=== PATIENT | male | born 1960 | race Caucasian/White ===

== ENCOUNTER 2017-08-24 15:30 | Inpatient (IN) ==
[2017-08-24 17:29] LABS: Basophils # 0.1 10*3/uL (0.0-0.2); Basophils % 0.5 % (0.0-0.8); Eosinophils # 0.2 10*3/uL (0.0-0.87); Eosinophils % 1.2 % (0.00-10.9); Hematocrit 42.1 VOL% (42.0-52.0); Hemoglobin 14.5 GM/DL (14.0-18.0); Immature Granulocytes % 0.3 %; Immature Granulocytes Absolute 0.04 #; Lymphocytes % 23.4 % (21.2-54.2); Mean Corpuscular HGB Conc 34.4 GM/DL (32-36); Mean Corpuscular Hemoglobin 32 PG (27-34); Mean Corpuscular Volume 91.5 FL (87-102); Mean Platelet Volume 9.1 FL (9.6-12.0); Monocytes % 7.4 % (1.7-12.7); Neutrophils # 8.7 10*3/uL (1.4-7.4); Neutrophils % 67.2 % (38.7-73.9); Platelet Count 444 T/CUMM (130-400); Red Cell Distribution Width 12.8 % (9.3-17.3); White Blood Count 12.9 T/CUMM (4-12)
[2017-08-24 17:35] LABS: Apearance,Urine CLEAR (Clear); Bilirubin,Urine Negative (Negative); Blood, Urine Small mg/dL (Negative); Glucose,Urine (UA) Negative (Negative); Ketones,Urine Negative (Negative); Nitrite,Urine Negative (Negative); Protein,Urine Negative; RBC,Urine 7 /HPF (0-4); Urine Color Yellow (Yellow); Urine Specific Gravity 1.012 (1.001-1.035); Urine Urobilinogen < 2.0 EU/DL (0.2-1.0); WBC,Urine <1 /HPF (0-6)
[2017-08-24 17:41] LABS: Barbiturates Screen,Urine Negative (Negative); Benzodiazepines Screen,Urine Negative (Negative); Cannabinoid Screen,Urine Negative (Negative); Opiate Screen,Urine Positive (Negative); Phencyclidine Screen,Urine Negative (Negative)
[2017-08-24 17:46] LABS: INR 0.9; PT Patient Result 9.8 SECS; Partial Thromboplastin Time 25.7 SECS (0-40)
[2017-08-24 17:48] LABS: Alanine Aminotransferase 30 U/L (16-61); Albumin 3.9 G/DL (3.4-5.0); Alkaline Phosphatase 86 U/L (45-117); Aspartate Amino Transferase 17 U/L (0-37); Bilirubin,Total < 0.39 MG/DL (0.2-1.0); Blood Urea Nitrogen 12 MG/DL (7-18); Calcium 8.5 MG/DL (8.5-10.1); Glucose 99 MG/DL (74-106); Osmolality,Calculated 274.7 MOS/KG (273-304); Potassium 3.9 MMOL/L (3.5-5.1); Sodium 138 MMOL/L (136-145); Total Protein 7.5 G/DL (6.4-8.3)
[2017-08-24 17:49] LABS: Troponin I Only < 0.015 NG/ML (0.00-0.045)
[2017-08-24 18:41] LABS: Sedimentation Rate-Westergren 19 MM/HR (0-20)
[2017-08-24 20:20] LABS: Risk Ratio 2.64; VLDL CHOLESTEROL 28.8 MG/DL
[2017-08-25 06:59] LABS: Basophils # 0.1 10*3/uL (0.0-0.2); Basophils % 0.5 % (0.0-0.8); Eosinophils # 0.3 10*3/uL (0.0-0.87); Eosinophils % 2.5 % (0.00-10.9); Hematocrit 38.9 VOL% (42.0-52.0); Immature Granulocytes % 0.4 %; Immature Granulocytes Absolute 0.05 #; Lymphocytes # 4.2 10*3/uL (1.4-4.0); Lymphocytes % 33.4 % (21.2-54.2); Mean Corpuscular HGB Conc 33.4 GM/DL (32-36); Mean Corpuscular Hemoglobin 31 PG (27-34); Mean Corpuscular Volume 93.1 FL (87-102); Mean Platelet Volume 9.3 FL (9.6-12.0); Monocytes # 1.2 10*3/uL (0.11-0.8); Monocytes % 9.7 % (1.7-12.7); Neutrophils # 6.7 10*3/uL (1.4-7.4); Neutrophils % 53.5 % (38.7-73.9); Platelet Count 404 T/CUMM (130-400); Red Blood Count 4.18 MC/CUMM (3.8-5.5); Red Cell Distribution Width 12.6 % (9.3-17.3); White Blood Count 12.5 T/CUMM (4-12)
[2017-08-25 07:24] LABS: Calcium 8.8 MG/DL (8.5-10.1); Osmolality,Calculated 282.3 MOS/KG (273-304); Potassium 3.8 MMOL/L (3.5-5.1)
[2017-08-26 11:41] VITALS: BP 138/79
== END 2017-08-26 15:34 | disposition home or self-care (01) | DRG 103 ==
LOC: N.ED 15:30 → N.EDINP 19:57 → N.5E 21:39
PROVIDERS: ADMIT Internal Medicine; ATTEND Internal Medicine

== ENCOUNTER 2017-11-16 09:28 | Inpatient (IN) ==
[2017-11-16] MEDS ORDERED: POLYVINYL ALCOHOL 1.4% OPH SOLN 15 ML BOTTLE BOTH EYES PRN (14:40)
[2017-11-16] MEDS ORDERED: POLYETHYLENE GLYCOL POWDER 17 GM PACK PO SCH (15:00)
[2017-11-16] MEDS ORDERED: TUBERCULIN SKIN TEST 0.1 ML SYRINGE INTRADERM ONE (15:30)
[2017-11-16] MEDS: POLYETHYLENE GLYCOL POWDER 17 GM PACK PEG SCH (17:02)
[2017-11-16] MEDS: ALBUTEROL/IPRATROPIUM 3 ML NEB RESP TX SCH (19:21)
[2017-11-16] MEDS: ENOXAPARIN 40 MG/0.4 ML SYRINGE SUBCUT SCH (21:40)
[2017-11-16] MEDS: PROPRANOLOL 10 MG TABLET PO SCH (21:50)
[2017-11-17] MEDS: ALBUTEROL/IPRATROPIUM 3 ML NEB RESP TX SCH ×4 (01:08→19:50)
[2017-11-17] MEDS: PROPRANOLOL 10 MG TABLET PO SCH ×3 (06:42→21:59)
[2017-11-17 06:53] LABS: Basophils # 0.1 10*3/uL (0.0-0.2); Basophils % 0.5 % (0.0-0.8); Eosinophils # 0.2 10*3/uL (0.0-0.87); Eosinophils % 1.2 % (0.00-10.9); Hematocrit 31.6 VOL% (42.0-52.0); Hemoglobin 10.5 GM/DL (14.0-18.0); Immature Granulocytes % 0.6 %; Immature Granulocytes Absolute 0.09 #; Lymphocytes # 1.9 10*3/uL (1.4-4.0); Lymphocytes % 13.1 % (21.2-54.2); Mean Corpuscular HGB Conc 33.2 GM/DL (32-36); Mean Corpuscular Hemoglobin 27 PG (27-34); Mean Corpuscular Volume 81.7 FL (87-102); Mean Platelet Volume 9.8 FL (9.6-12.0); Monocytes # 2.1 10*3/uL (0.11-0.8); Monocytes % 14.5 % (1.7-12.7); Neutrophils # 10.3 10*3/uL (1.4-7.4); Neutrophils % 70.1 % (38.7-73.9); Platelet Count 572 T/CUMM (130-400); Red Blood Count 3.87 MC/CUMM (3.8-5.5); Red Cell Distribution Width 14.3 % (9.3-17.3); White Blood Count 14.7 T/CUMM (4-12)
[2017-11-17 07:12] LABS: Alanine Aminotransferase 97 U/L (16-61); Albumin 2.2 G/DL (3.4-5.0); Alkaline Phosphatase 147 U/L (45-117); Aspartate Amino Transferase 48 U/L (0-37); Bilirubin,Total < 0.39 MG/DL (0.2-1.0); Blood Urea Nitrogen 19 MG/DL (7-18); Glucose 119 MG/DL (74-106); Osmolality,Calculated 262.8 MOS/KG (273-304); Potassium 3.9 MMOL/L (3.5-5.1); Sodium 130 MMOL/L (136-145); Total Protein 7.1 G/DL (6.4-8.3)
[2017-11-17] MEDS: ZINC OXIDE PASTE 113 GM TUBE TOP SCH ×2 (13:23→22:00)
[2017-11-17] MEDS: SODIUM CHLORIDE 1 GM TABLET PO SCH ×2 (13:23→21:59)
[2017-11-17] MEDS: POLYETHYLENE GLYCOL POWDER 17 GM PACK PEG SCH (13:23)
[2017-11-17] MEDS: DOCUSATE SODIUM 100 MG/10 ML UDCUP PEG SCH (13:23)
[2017-11-17] MEDS: ENOXAPARIN 40 MG/0.4 ML SYRINGE SUBCUT SCH (22:00)
[2017-11-18] MEDS: ALBUTEROL/IPRATROPIUM 3 ML NEB RESP TX SCH ×4 (00:26→20:15)
[2017-11-18] MEDS: PROPRANOLOL 10 MG TABLET PO SCH ×3 (05:21→21:37)
[2017-11-18 06:09] LABS: Calcium 8.7 MG/DL (8.5-10.1); Osmolality,Calculated 266.7 MOS/KG (273-304); Potassium 3.8 MMOL/L (3.5-5.1); Prealbumin 15.7 MG/DL (20-40)
[2017-11-18] MEDS: DOCUSATE SODIUM 100 MG/10 ML UDCUP PEG SCH (09:15)
[2017-11-18] MEDS: SODIUM CHLORIDE 1 GM TABLET PO SCH ×3 (09:15→21:37)
[2017-11-18] MEDS: FAMOTIDINE 20 MG TABLET PEG SCH ×2 (09:15→21:37)
[2017-11-18] MEDS: POLYETHYLENE GLYCOL POWDER 17 GM PACK PEG SCH (09:15)
[2017-11-18] MEDS: ZINC OXIDE PASTE 113 GM TUBE TOP SCH ×2 (09:15→21:38)
[2017-11-18 13:15] LABS: Basophils # 0.1 10*3/uL (0.0-0.2); Basophils % 0.3 % (0.0-0.8); Eosinophils % 0.2 % (0.00-10.9); Hematocrit 31.4 VOL% (42.0-52.0); Hemoglobin 10.3 GM/DL (14.0-18.0); Immature Granulocytes % 0.5 %; Immature Granulocytes Absolute 0.09 #; Lymphocytes # 1.2 10*3/uL (1.4-4.0); Lymphocytes % 7.1 % (21.2-54.2); Mean Corpuscular HGB Conc 32.8 GM/DL (32-36); Mean Corpuscular Hemoglobin 27 PG (27-34); Mean Corpuscular Volume 83.3 FL (87-102); Mean Platelet Volume 9.8 FL (9.6-12.0); Monocytes # 1.8 10*3/uL (0.11-0.8); Monocytes % 10.9 % (1.7-12.7); Neutrophils # 13.7 10*3/uL (1.4-7.4); Platelet Count 526 T/CUMM (130-400); Red Blood Count 3.77 MC/CUMM (3.8-5.5); Red Cell Distribution Width 14.3 % (9.3-17.3); White Blood Count 16.9 T/CUMM (4-12)
[2017-11-18 15:18] LABS: Apearance,Urine Slightly Hazy (Clear); Bilirubin,Urine Negative (Negative); Blood, Urine Negative (Negative); Glucose,Urine (UA) Negative (Negative); Ketones,Urine Negative (Negative); Mucus,Urine Occasional /LPF (Occasional); Nitrite,Urine Negative (Negative); Protein,Urine 30 MG/DL; RBC,Urine 25 /HPF (0-4); Squamous Epithelial Cell,Urine Occasional /HPF (0-10); Urine Color Yellow (Yellow); Urine Specific Gravity 1.024 (1.001-1.035); WBC,Urine 1 /HPF (0-6)
[2017-11-18] MEDS: ACETAMINOPHEN 325 MG/10.15 ML UDCUP PER TUBE PRN (16:12)
[2017-11-18] MEDS: ENOXAPARIN 40 MG/0.4 ML SYRINGE SUBCUT SCH (21:37)
[2017-11-19] MEDS: ALBUTEROL/IPRATROPIUM 3 ML NEB RESP TX SCH ×4 (02:17→19:18)
[2017-11-19] MEDS: PROPRANOLOL 10 MG TABLET PO SCH ×3 (05:27→23:35)
[2017-11-19] MEDS: POLYETHYLENE GLYCOL POWDER 17 GM PACK PEG SCH (09:15)
[2017-11-19] MEDS: DOCUSATE SODIUM 100 MG/10 ML UDCUP PEG SCH (09:15)
[2017-11-19] MEDS: ZINC OXIDE PASTE 113 GM TUBE TOP SCH ×2 (09:15→21:37)
[2017-11-19] MEDS: FAMOTIDINE 20 MG TABLET PEG SCH ×2 (09:16→21:37)
[2017-11-19] MEDS: ACETAMINOPHEN 325 MG/10.15 ML UDCUP PER TUBE PRN (09:16)
[2017-11-19] MEDS: SODIUM CHLORIDE 1 GM TABLET PO SCH ×3 (09:16→21:37)
[2017-11-19] MEDS: LEVOFLOXACIN INJ 500 MG in PREMIX 1 EACH IV SCH (09:25)
[2017-11-19] MEDS: ENOXAPARIN 40 MG/0.4 ML SYRINGE SUBCUT SCH (21:37)
[2017-11-20] MEDS: ALBUTEROL/IPRATROPIUM 3 ML NEB RESP TX SCH ×4 (00:26→19:28)
[2017-11-20 05:26] LABS: Basophils % 0.3 % (0.0-0.8); Eosinophils # 0.2 10*3/uL (0.0-0.87); Eosinophils % 1.1 % (0.00-10.9); Hematocrit 27.8 VOL% (42.0-52.0); Hemoglobin 9.2 GM/DL (14.0-18.0); Immature Granulocytes % 0.4 %; Immature Granulocytes Absolute 0.06 #; Lymphocytes # 1.6 10*3/uL (1.4-4.0); Lymphocytes % 11.5 % (21.2-54.2); Mean Corpuscular HGB Conc 33.1 GM/DL (32-36); Mean Corpuscular Hemoglobin 27 PG (27-34); Mean Corpuscular Volume 81.5 FL (87-102); Mean Platelet Volume 9.6 FL (9.6-12.0); Monocytes # 1.9 10*3/uL (0.11-0.8); Monocytes % 13.7 % (1.7-12.7); Neutrophils # 9.9 10*3/uL (1.4-7.4); Platelet Count 489 T/CUMM (130-400); Red Blood Count 3.41 MC/CUMM (3.8-5.5); Red Cell Distribution Width 14.5 % (9.3-17.3); White Blood Count 13.6 T/CUMM (4-12)
[2017-11-20 05:56] LABS: Albumin 2.1 G/DL (3.4-5.0); Bilirubin,Total 0.5 MG/DL (0.2-1.0); Calcium 8.6 MG/DL (8.5-10.1); Osmolality,Calculated 268.4 MOS/KG (273-304); Potassium 3.3 MMOL/L (3.5-5.1); Total Protein 6.3 G/DL (6.4-8.3)
[2017-11-20] MEDS: PROPRANOLOL 10 MG TABLET PO SCH ×3 (06:35→21:38)
[2017-11-20] MEDS: LEVOFLOXACIN INJ 500 MG in PREMIX 1 EACH IV SCH (07:07)
[2017-11-20] MEDS: FAMOTIDINE 20 MG TABLET PEG SCH ×2 (08:43→21:37)
[2017-11-20] MEDS: DOCUSATE SODIUM 100 MG/10 ML UDCUP PEG SCH (08:43)
[2017-11-20] MEDS: ZINC OXIDE PASTE 113 GM TUBE TOP SCH ×2 (08:43→21:37)
[2017-11-20] MEDS: POLYETHYLENE GLYCOL POWDER 17 GM PACK PEG SCH (08:43)
[2017-11-20] MEDS: SODIUM CHLORIDE 1 GM TABLET PO SCH ×3 (08:43→21:38)
[2017-11-20] MEDS: ENOXAPARIN 40 MG/0.4 ML SYRINGE SUBCUT SCH (21:37)
[2017-11-21] MEDS: ALBUTEROL/IPRATROPIUM 3 ML NEB RESP TX SCH ×4 (01:44→19:44)
[2017-11-21 05:13] LABS: Basophils # 0.1 10*3/uL (0.0-0.2); Basophils % 0.5 % (0.0-0.8); Eosinophils # 0.2 10*3/uL (0.0-0.87); Eosinophils % 1.3 % (0.00-10.9); Hematocrit 27.1 VOL% (42.0-52.0); Hemoglobin 8.9 GM/DL (14.0-18.0); Immature Granulocytes % 0.4 %; Immature Granulocytes Absolute 0.04 #; Lymphocytes # 1.7 10*3/uL (1.4-4.0); Lymphocytes % 15.1 % (21.2-54.2); Mean Corpuscular HGB Conc 32.8 GM/DL (32-36); Mean Corpuscular Hemoglobin 27 PG (27-34); Mean Corpuscular Volume 81.6 FL (87-102); Mean Platelet Volume 9.8 FL (9.6-12.0); Monocytes # 1.5 10*3/uL (0.11-0.8); Monocytes % 13.7 % (1.7-12.7); NRBC # 0.02 10*3/uL; Neutrophils # 7.7 10*3/uL (1.4-7.4); Platelet Count 500 T/CUMM (130-400); Red Blood Count 3.32 MC/CUMM (3.8-5.5); Red Cell Distribution Width 14.6 % (9.3-17.3); White Blood Count 11.2 T/CUMM (4-12)
[2017-11-21] MEDS: PROPRANOLOL 10 MG TABLET PO SCH ×3 (08:30→21:54)
[2017-11-21] MEDS: LEVOFLOXACIN INJ 500 MG in PREMIX 1 EACH IV SCH (08:38)
[2017-11-21] MEDS: ZINC OXIDE PASTE 113 GM TUBE TOP SCH ×2 (09:30→21:54)
[2017-11-21] MEDS: POLYETHYLENE GLYCOL POWDER 17 GM PACK PEG SCH (10:22)
[2017-11-21] MEDS: DOCUSATE SODIUM 100 MG/10 ML UDCUP PEG SCH (10:22)
[2017-11-21] MEDS: SODIUM CHLORIDE 1 GM TABLET PO SCH ×3 (10:22→21:54)
[2017-11-21] MEDS: FAMOTIDINE 20 MG TABLET PEG SCH ×2 (10:22→21:54)
[2017-11-21] MEDS: ENOXAPARIN 40 MG/0.4 ML SYRINGE SUBCUT SCH (21:54)
[2017-11-22] MEDS: ALBUTEROL/IPRATROPIUM 3 ML NEB RESP TX SCH ×4 (00:25→19:28)
[2017-11-22 05:10] LABS: Basophils # 0.1 10*3/uL (0.0-0.2); Basophils % 0.6 % (0.0-0.8); Eosinophils # 0.2 10*3/uL (0.0-0.87); Eosinophils % 1.4 % (0.00-10.9); Hematocrit 28.4 VOL% (42.0-52.0); Hemoglobin 9.1 GM/DL (14.0-18.0); Immature Granulocytes % 0.4 %; Immature Granulocytes Absolute 0.05 #; Lymphocytes # 2.4 10*3/uL (1.4-4.0); Lymphocytes % 19.2 % (21.2-54.2); Mean Corpuscular Hemoglobin 27 PG (27-34); Mean Corpuscular Volume 83.5 FL (87-102); Mean Platelet Volume 9.2 FL (9.6-12.0); Monocytes # 1.7 10*3/uL (0.11-0.8); Monocytes % 13.5 % (1.7-12.7); Neutrophils # 8.2 10*3/uL (1.4-7.4); Neutrophils % 64.9 % (38.7-73.9); Platelet Count 537 T/CUMM (130-400); Red Cell Distribution Width 14.5 % (9.3-17.3); White Blood Count 12.6 T/CUMM (4-12)
[2017-11-22 05:38] LABS: Calcium 8.6 MG/DL (8.5-10.1); Osmolality,Calculated 268.2 MOS/KG (273-304); Potassium 3.3 MMOL/L (3.5-5.1); Prealbumin 13.2 MG/DL (20-40)
[2017-11-22] MEDS: PROPRANOLOL 10 MG TABLET PO SCH ×3 (07:20→21:52)
[2017-11-22] MEDS: LEVOFLOXACIN INJ 500 MG in PREMIX 1 EACH IV SCH (07:39)
[2017-11-22] MEDS: SODIUM CHLORIDE 1 GM TABLET PO SCH ×3 (09:28→21:52)
[2017-11-22] MEDS: ZINC OXIDE PASTE 113 GM TUBE TOP SCH ×2 (09:28→21:52)
[2017-11-22] MEDS: FAMOTIDINE 20 MG TABLET PEG SCH ×2 (09:28→21:52)
[2017-11-22] MEDS: POLYETHYLENE GLYCOL POWDER 17 GM PACK PEG SCH (09:28)
[2017-11-22] MEDS: DOCUSATE SODIUM 100 MG/10 ML UDCUP PEG SCH (09:28)
[2017-11-22] MEDS: ENOXAPARIN 40 MG/0.4 ML SYRINGE SUBCUT SCH (21:52)
[2017-11-23] MEDS: ALBUTEROL/IPRATROPIUM 3 ML NEB RESP TX SCH ×4 (00:05→18:46)
[2017-11-23] MEDS: PROPRANOLOL 10 MG TABLET PO SCH ×3 (05:18→21:31)
[2017-11-23] MEDS: LEVOFLOXACIN INJ 500 MG in PREMIX 1 EACH IV SCH (06:06)
[2017-11-23] MEDS: FAMOTIDINE 20 MG TABLET PEG SCH ×2 (08:39→21:31)
[2017-11-23] MEDS: SODIUM CHLORIDE 1 GM TABLET PO SCH ×3 (08:39→21:31)
[2017-11-23] MEDS: DOCUSATE SODIUM 100 MG/10 ML UDCUP PEG SCH (08:39)
[2017-11-23] MEDS: ZINC OXIDE PASTE 113 GM TUBE TOP SCH ×2 (08:39→21:31)
[2017-11-23] MEDS: POLYETHYLENE GLYCOL POWDER 17 GM PACK PEG SCH (08:40)
[2017-11-23] MEDS ORDERED: POTASSIUM CHLORIDE 20 MEQ/15 ML UDCUP PO ONE (14:58)
[2017-11-23] MEDS: ENOXAPARIN 40 MG/0.4 ML SYRINGE SUBCUT SCH (21:31)
[2017-11-24] MEDS: ALBUTEROL/IPRATROPIUM 3 ML NEB RESP TX SCH ×4 (01:54→19:23)
[2017-11-24 05:09] LABS: Basophils % 0.2 % (0.0-0.8); Eosinophils # 0.1 10*3/uL (0.0-0.87); Eosinophils % 0.6 % (0.00-10.9); Hematocrit 30.7 VOL% (42.0-52.0); Hemoglobin 9.9 GM/DL (14.0-18.0); Immature Granulocytes % 0.5 %; Immature Granulocytes Absolute 0.09 #; Lymphocytes # 1.5 10*3/uL (1.4-4.0); Lymphocytes % 8.2 % (21.2-54.2); Mean Corpuscular HGB Conc 32.2 GM/DL (32-36); Mean Corpuscular Hemoglobin 27 PG (27-34); Mean Platelet Volume 9.2 FL (9.6-12.0); Monocytes # 1.6 10*3/uL (0.11-0.8); Neutrophils # 14.7 10*3/uL (1.4-7.4); Neutrophils % 81.5 % (38.7-73.9); Platelet Count 657 T/CUMM (130-400); Red Cell Distribution Width 14.6 % (9.3-17.3)
[2017-11-24 05:49] LABS: Calcium 8.5 MG/DL (8.5-10.1); Osmolality,Calculated 267.4 MOS/KG (273-304); Potassium 3.6 MMOL/L (3.5-5.1)
[2017-11-24] MEDS: LEVOFLOXACIN INJ 500 MG in PREMIX 1 EACH IV SCH (06:53)
[2017-11-24] MEDS: PROPRANOLOL 10 MG TABLET PO SCH ×3 (06:55→21:48)
[2017-11-24] MEDS: FAMOTIDINE 20 MG TABLET PEG SCH ×2 (09:41→21:48)
[2017-11-24] MEDS: POLYETHYLENE GLYCOL POWDER 17 GM PACK PEG SCH (09:41)
[2017-11-24] MEDS: ZINC OXIDE PASTE 113 GM TUBE TOP SCH ×2 (09:41→21:49)
[2017-11-24] MEDS: DOCUSATE SODIUM 100 MG/10 ML UDCUP PEG SCH (09:41)
[2017-11-24] MEDS: SODIUM CHLORIDE 1 GM TABLET PO SCH ×3 (09:41→21:48)
[2017-11-24] MEDS: ENOXAPARIN 40 MG/0.4 ML SYRINGE SUBCUT SCH (21:49)
[2017-11-25] MEDS: ALBUTEROL/IPRATROPIUM 3 ML NEB RESP TX SCH ×4 (00:18→19:40)
[2017-11-25] MEDS: PROPRANOLOL 10 MG TABLET PO SCH ×3 (06:22→21:22)
[2017-11-25] MEDS: LEVOFLOXACIN INJ 500 MG in PREMIX 1 EACH IV SCH (07:37)
[2017-11-25] MEDS: DOCUSATE SODIUM 100 MG/10 ML UDCUP PEG SCH (08:48)
[2017-11-25] MEDS: FAMOTIDINE 20 MG TABLET PEG SCH ×2 (08:48→21:22)
[2017-11-25] MEDS: SODIUM CHLORIDE 1 GM TABLET PO SCH ×3 (08:48→21:22)
[2017-11-25] MEDS: POLYETHYLENE GLYCOL POWDER 17 GM PACK PEG SCH (08:48)
[2017-11-25] MEDS: ZINC OXIDE PASTE 113 GM TUBE TOP SCH ×2 (08:49→21:23)
[2017-11-25] MEDS: ENOXAPARIN 40 MG/0.4 ML SYRINGE SUBCUT SCH (21:23)
[2017-11-26] MEDS: ALBUTEROL/IPRATROPIUM 3 ML NEB RESP TX SCH ×4 (00:50→19:13)
[2017-11-26] MEDS: LEVOFLOXACIN INJ 500 MG in PREMIX 1 EACH IV SCH (06:12)
[2017-11-26] MEDS: PROPRANOLOL 10 MG TABLET PO SCH ×3 (06:21→21:28)
[2017-11-26] MEDS: DOCUSATE SODIUM 100 MG/10 ML UDCUP PEG SCH (09:34)
[2017-11-26] MEDS: FAMOTIDINE 20 MG TABLET PEG SCH ×2 (09:34→21:29)
[2017-11-26] MEDS: SODIUM CHLORIDE 1 GM TABLET PO SCH ×3 (09:34→21:28)
[2017-11-26] MEDS: POLYETHYLENE GLYCOL POWDER 17 GM PACK PEG SCH (09:34)
[2017-11-26] MEDS: ZINC OXIDE PASTE 113 GM TUBE TOP SCH ×2 (09:35→21:29)
[2017-11-26] MEDS: FUROSEMIDE 40 MG/4 ML VIAL IV SCH (15:25)
[2017-11-26] MEDS: ENOXAPARIN 40 MG/0.4 ML SYRINGE SUBCUT SCH (21:29)
[2017-11-27] MEDS: ALBUTEROL/IPRATROPIUM 3 ML NEB RESP TX SCH ×4 (00:06→19:14)
[2017-11-27 05:21] LABS: Basophils % 0.3 % (0.0-0.8); Eosinophils # 0.2 10*3/uL (0.0-0.87); Eosinophils % 1.3 % (0.00-10.9); Hematocrit 29.3 VOL% (42.0-52.0); Hemoglobin 9.7 GM/DL (14.0-18.0); Immature Granulocytes % 0.6 %; Immature Granulocytes Absolute 0.07 #; Lymphocytes # 2.2 10*3/uL (1.4-4.0); Lymphocytes % 17.8 % (21.2-54.2); Mean Corpuscular HGB Conc 33.1 GM/DL (32-36); Mean Corpuscular Hemoglobin 27 PG (27-34); Mean Corpuscular Volume 80.3 FL (87-102); Mean Platelet Volume 9.5 FL (9.6-12.0); Monocytes # 1.6 10*3/uL (0.11-0.8); Monocytes % 13.4 % (1.7-12.7); Neutrophils # 8.1 10*3/uL (1.4-7.4); Neutrophils % 66.6 % (38.7-73.9); Platelet Count 682 T/CUMM (130-400); Red Blood Count 3.65 MC/CUMM (3.8-5.5); White Blood Count 12.2 T/CUMM (4-12)
[2017-11-27 05:52] LABS: Calcium 9.2 MG/DL (8.5-10.1); Osmolality,Calculated 271.1 MOS/KG (273-304); Potassium 3.5 MMOL/L (3.5-5.1)
[2017-11-27] MEDS: PROPRANOLOL 10 MG TABLET PO SCH ×3 (06:32→21:36)
[2017-11-27] MEDS: LEVOFLOXACIN INJ 500 MG in PREMIX 1 EACH IV SCH (06:38)
[2017-11-27] MEDS: FUROSEMIDE 40 MG/4 ML VIAL IV SCH ×2 (09:25→15:54)
[2017-11-27] MEDS: ZINC OXIDE PASTE 113 GM TUBE TOP SCH ×2 (09:27→21:36)
[2017-11-27] MEDS: FAMOTIDINE 20 MG TABLET PEG SCH ×2 (09:27→21:36)
[2017-11-27] MEDS: SODIUM CHLORIDE 1 GM TABLET PO SCH ×3 (09:27→21:36)
[2017-11-27] MEDS: DOCUSATE SODIUM 100 MG/10 ML UDCUP PEG SCH (09:27)
[2017-11-27] MEDS: POLYETHYLENE GLYCOL POWDER 17 GM PACK PEG SCH (09:27)
[2017-11-27] MEDS: POTASSIUM CHLORIDE RIDER 10 MEQ in PREMIX 1 EACH IV PRN ×3 (12:47→14:39)
[2017-11-27] MEDS: ENOXAPARIN 40 MG/0.4 ML SYRINGE SUBCUT SCH (21:36)
[2017-11-28 03:35] LABS: Basophils # 0.1 10*3/uL (0.0-0.2); Basophils % 0.4 % (0.0-0.8); Eosinophils # 0.2 10*3/uL (0.0-0.87); Eosinophils % 1.3 % (0.00-10.9); Hematocrit 29.6 VOL% (42.0-52.0); Hemoglobin 9.5 GM/DL (14.0-18.0); Immature Granulocytes % 0.4 %; Immature Granulocytes Absolute 0.05 #; Lymphocytes # 2.1 10*3/uL (1.4-4.0); Lymphocytes % 17.2 % (21.2-54.2); Mean Corpuscular HGB Conc 32.1 GM/DL (32-36); Mean Corpuscular Hemoglobin 27 PG (27-34); Mean Corpuscular Volume 82.7 FL (87-102); Mean Platelet Volume 9.6 FL (9.6-12.0); Monocytes # 1.4 10*3/uL (0.11-0.8); Monocytes % 11.7 % (1.7-12.7); Neutrophils # 8.3 10*3/uL (1.4-7.4); Platelet Count 726 T/CUMM (130-400); Red Blood Count 3.58 MC/CUMM (3.8-5.5); Red Cell Distribution Width 14.9 % (9.3-17.3)
[2017-11-28 04:03] LABS: Calcium 8.9 MG/DL (8.5-10.1); Potassium 3.2 MMOL/L (3.5-5.1)
[2017-11-28] MEDS: LEVOFLOXACIN INJ 500 MG in PREMIX 1 EACH IV SCH (06:25)
[2017-11-28] MEDS: PROPRANOLOL 10 MG TABLET PO SCH ×3 (06:25→21:34)
[2017-11-28] MEDS: ALBUTEROL/IPRATROPIUM 3 ML NEB RESP TX SCH ×4 (08:19→19:35)
[2017-11-28] MEDS: FUROSEMIDE 40 MG/4 ML VIAL IV SCH ×2 (09:23→16:10)
[2017-11-28] MEDS: SODIUM CHLORIDE 1 GM TABLET PO SCH ×3 (09:29→21:34)
[2017-11-28] MEDS: POLYETHYLENE GLYCOL POWDER 17 GM PACK PEG SCH (09:29)
[2017-11-28] MEDS: FAMOTIDINE 20 MG TABLET PEG SCH ×2 (09:29→21:34)
[2017-11-28] MEDS: DOCUSATE SODIUM 100 MG/10 ML UDCUP PEG SCH (09:29)
[2017-11-28] MEDS: ZINC OXIDE PASTE 113 GM TUBE TOP SCH ×2 (09:29→21:33)
[2017-11-28] MEDS ORDERED: FLUCONAZOLE 200 MG TABLET PEG ONE (09:42)
[2017-11-28] MEDS: POTASSIUM CHLORIDE RIDER 10 MEQ in PREMIX 1 EACH IV PRN ×3 (10:35→12:40)
[2017-11-28] MEDS: POTASSIUM CHLORIDE 20 MEQ TABLET PO SCH (11:45)
[2017-11-28] MEDS: ENOXAPARIN 40 MG/0.4 ML SYRINGE SUBCUT SCH (21:33)
[2017-11-29] MEDS: ALBUTEROL/IPRATROPIUM 3 ML NEB RESP TX SCH ×4 (00:25→19:41)
[2017-11-29] MEDS: LEVOFLOXACIN INJ 500 MG in PREMIX 1 EACH IV SCH (06:40)
[2017-11-29] MEDS: PROPRANOLOL 10 MG TABLET PO SCH ×3 (06:40→21:05)
[2017-11-29 06:50] LABS: Basophils # 0.1 10*3/uL (0.0-0.2); Basophils % 0.5 % (0.0-0.8); Eosinophils # 0.2 10*3/uL (0.0-0.87); Eosinophils % 1.6 % (0.00-10.9); Hemoglobin 9.5 GM/DL (14.0-18.0); Immature Granulocytes % 0.5 %; Immature Granulocytes Absolute 0.07 #; Lymphocytes # 2.5 10*3/uL (1.4-4.0); Lymphocytes % 19.6 % (21.2-54.2); Mean Corpuscular HGB Conc 32.8 GM/DL (32-36); Mean Corpuscular Hemoglobin 27 PG (27-34); Mean Corpuscular Volume 81.2 FL (87-102); Mean Platelet Volume 9.3 FL (9.6-12.0); Monocytes # 1.4 10*3/uL (0.11-0.8); Monocytes % 10.5 % (1.7-12.7); Neutrophils # 8.6 10*3/uL (1.4-7.4); Neutrophils % 67.3 % (38.7-73.9); Platelet Count 730 T/CUMM (130-400); Red Blood Count 3.57 MC/CUMM (3.8-5.5); Red Cell Distribution Width 15.1 % (9.3-17.3); White Blood Count 12.8 T/CUMM (4-12)
[2017-11-29 07:16] LABS: Calcium 9.3 MG/DL (8.5-10.1); Potassium 3.7 MMOL/L (3.5-5.1)
[2017-11-29 07:21] LABS: Prealbumin 17.5 MG/DL (20-40)
[2017-11-29] MEDS: FAMOTIDINE 20 MG TABLET PEG SCH ×2 (09:35→20:45)
[2017-11-29] MEDS: DOCUSATE SODIUM 100 MG/10 ML UDCUP PEG SCH (09:35)
[2017-11-29] MEDS: POLYETHYLENE GLYCOL POWDER 17 GM PACK PEG SCH (09:35)
[2017-11-29] MEDS: POTASSIUM CHLORIDE 20 MEQ TABLET PO SCH (09:35)
[2017-11-29] MEDS: SODIUM CHLORIDE 1 GM TABLET PO SCH ×3 (09:35→20:44)
[2017-11-29] MEDS: FUROSEMIDE 40 MG/4 ML VIAL IV SCH ×2 (09:35→15:55)
[2017-11-29] MEDS: ZINC OXIDE PASTE 113 GM TUBE TOP SCH ×2 (09:36→22:20)
[2017-11-29] MEDS: ENOXAPARIN 40 MG/0.4 ML SYRINGE SUBCUT SCH (20:43)
[2017-11-30] MEDS: ALBUTEROL/IPRATROPIUM 3 ML NEB RESP TX SCH ×4 (01:47→19:39)
[2017-11-30 05:28] LABS: Basophils % 0.3 % (0.0-0.8); Eosinophils # 0.2 10*3/uL (0.0-0.87); Eosinophils % 1.8 % (0.00-10.9); Hemoglobin 9.9 GM/DL (14.0-18.0); Immature Granulocytes % 0.4 %; Immature Granulocytes Absolute 0.05 #; Lymphocytes # 2.8 10*3/uL (1.4-4.0); Lymphocytes % 23.7 % (21.2-54.2); Mean Corpuscular HGB Conc 31.9 GM/DL (32-36); Mean Corpuscular Hemoglobin 26 PG (27-34); Mean Corpuscular Volume 80.7 FL (87-102); Mean Platelet Volume 9.2 FL (9.6-12.0); Monocytes # 1.3 10*3/uL (0.11-0.8); Monocytes % 10.5 % (1.7-12.7); Neutrophils # 7.5 10*3/uL (1.4-7.4); Neutrophils % 63.3 % (38.7-73.9); Platelet Count 744 T/CUMM (130-400); Red Blood Count 3.84 MC/CUMM (3.8-5.5); Red Cell Distribution Width 15.2 % (9.3-17.3); White Blood Count 11.9 T/CUMM (4-12)
[2017-11-30 05:51] LABS: Albumin 2.3 G/DL (3.4-5.0); Bilirubin,Total 0.5 MG/DL (0.2-1.0); Calcium 8.9 MG/DL (8.5-10.1); Osmolality,Calculated 276.8 MOS/KG (273-304); Potassium 3.5 MMOL/L (3.5-5.1); Total Protein 6.7 G/DL (6.4-8.3)
[2017-11-30] MEDS: LEVOFLOXACIN INJ 500 MG in PREMIX 1 EACH IV SCH (07:10)
[2017-11-30] MEDS: PROPRANOLOL 10 MG TABLET PO SCH ×3 (07:10→21:40)
[2017-11-30] MEDS: POTASSIUM CHLORIDE RIDER 10 MEQ in PREMIX 1 EACH IV PRN ×3 (09:18→12:20)
[2017-11-30] MEDS: DOCUSATE SODIUM 100 MG/10 ML UDCUP PEG SCH (09:19)
[2017-11-30] MEDS: FAMOTIDINE 20 MG TABLET PEG SCH ×2 (09:19→20:39)
[2017-11-30] MEDS: SODIUM CHLORIDE 1 GM TABLET PO SCH ×3 (09:19→20:40)
[2017-11-30] MEDS: POLYETHYLENE GLYCOL POWDER 17 GM PACK PEG SCH (09:19)
[2017-11-30] MEDS: FUROSEMIDE 40 MG/4 ML VIAL IV SCH (09:19)
[2017-11-30] MEDS: POTASSIUM CHLORIDE 20 MEQ TABLET PO SCH (09:19)
[2017-11-30] MEDS: ZINC OXIDE PASTE 113 GM TUBE TOP SCH ×2 (09:20→21:41)
[2017-11-30] MEDS: ENOXAPARIN 40 MG/0.4 ML SYRINGE SUBCUT SCH (20:38)
[2017-12-01] MEDS: ALBUTEROL/IPRATROPIUM 3 ML NEB RESP TX SCH ×4 (01:13→19:13)
[2017-12-01] MEDS: PROPRANOLOL 10 MG TABLET PO SCH ×3 (06:16→22:29)
[2017-12-01] MEDS: FUROSEMIDE 20 MG TABLET PO SCH (09:45)
[2017-12-01] MEDS: POLYETHYLENE GLYCOL POWDER 17 GM PACK PEG SCH (09:45)
[2017-12-01] MEDS: SODIUM CHLORIDE 1 GM TABLET PO SCH ×3 (09:45→20:41)
[2017-12-01] MEDS: DOCUSATE SODIUM 100 MG/10 ML UDCUP PEG SCH (09:45)
[2017-12-01] MEDS: FAMOTIDINE 20 MG TABLET PEG SCH ×2 (09:45→20:41)
[2017-12-01] MEDS: POTASSIUM CHLORIDE 20 MEQ TABLET PO SCH (09:45)
[2017-12-01] MEDS: ZINC OXIDE PASTE 113 GM TUBE TOP SCH ×2 (15:51→21:35)
[2017-12-01] MEDS: ENOXAPARIN 40 MG/0.4 ML SYRINGE SUBCUT SCH (20:34)
[2017-12-02] MEDS: ALBUTEROL/IPRATROPIUM 3 ML NEB RESP TX SCH ×4 (00:21→18:55)
[2017-12-02] MEDS: PROPRANOLOL 10 MG TABLET PO SCH ×3 (06:21→21:15)
[2017-12-02 06:40] LABS: Calcium 8.6 MG/DL (8.5-10.1); Osmolality,Calculated 276.8 MOS/KG (273-304); Potassium 3.7 MMOL/L (3.5-5.1); Prealbumin 18.9 MG/DL (20-40)
[2017-12-02] MEDS: SODIUM CHLORIDE 1 GM TABLET PO SCH ×3 (10:12→21:15)
[2017-12-02] MEDS: FUROSEMIDE 20 MG TABLET PO SCH (10:12)
[2017-12-02] MEDS: POTASSIUM CHLORIDE 20 MEQ TABLET PO SCH (10:12)
[2017-12-02] MEDS: FAMOTIDINE 20 MG TABLET PEG SCH ×2 (10:12→21:15)
[2017-12-02] MEDS: DOCUSATE SODIUM 100 MG/10 ML UDCUP PEG SCH (10:12)
[2017-12-02] MEDS: POLYETHYLENE GLYCOL POWDER 17 GM PACK PEG SCH (10:12)
[2017-12-02] MEDS: ZINC OXIDE PASTE 113 GM TUBE TOP SCH ×2 (10:27→23:08)
[2017-12-02] MEDS ORDERED: DEXTROSE 50% 25 GM/50 ML VIAL IV PRN (14:38)
[2017-12-02] MEDS ORDERED: GLUCAGON 1 MG VIAL IM PRN (14:38)
[2017-12-02] MEDS: ENOXAPARIN 40 MG/0.4 ML SYRINGE SUBCUT SCH (21:14)
[2017-12-03] MEDS: ALBUTEROL/IPRATROPIUM 3 ML NEB RESP TX SCH ×4 (00:11→19:24)
[2017-12-03 05:49] LABS: Calcium 8.8 MG/DL (8.5-10.1); Osmolality,Calculated 276.7 MOS/KG (273-304)
[2017-12-03] MEDS: PROPRANOLOL 10 MG TABLET PO SCH ×3 (06:00→21:23)
[2017-12-03] MEDS: DOCUSATE SODIUM 100 MG/10 ML UDCUP PEG SCH (08:47)
[2017-12-03] MEDS: FAMOTIDINE 20 MG TABLET PEG SCH ×2 (08:47→21:23)
[2017-12-03] MEDS: FUROSEMIDE 20 MG TABLET PO SCH (08:47)
[2017-12-03] MEDS: POLYETHYLENE GLYCOL POWDER 17 GM PACK PEG SCH (08:47)
[2017-12-03] MEDS: POTASSIUM CHLORIDE 20 MEQ TABLET PO SCH (08:47)
[2017-12-03] MEDS: SODIUM CHLORIDE 1 GM TABLET PO SCH ×3 (08:47→21:23)
[2017-12-03] MEDS: ZINC OXIDE PASTE 113 GM TUBE TOP SCH ×2 (08:47→21:23)
[2017-12-03] MEDS: ENOXAPARIN 40 MG/0.4 ML SYRINGE SUBCUT SCH (21:23)
[2017-12-04] MEDS: ALBUTEROL/IPRATROPIUM 3 ML NEB RESP TX SCH ×5 (00:46→19:02)
[2017-12-04 04:34] LABS: Basophils # 0.1 10*3/uL (0.0-0.2); Basophils % 0.3 % (0.0-0.8); Eosinophils # 0.1 10*3/uL (0.0-0.87); Eosinophils % 0.6 % (0.00-10.9); Hematocrit 32.2 VOL% (42.0-52.0); Hemoglobin 10.1 GM/DL (14.0-18.0); Immature Granulocytes % 0.6 %; Immature Granulocytes Absolute 0.09 #; Lymphocytes # 2.1 10*3/uL (1.4-4.0); Lymphocytes % 13.2 % (21.2-54.2); Mean Corpuscular HGB Conc 31.4 GM/DL (32-36); Mean Corpuscular Hemoglobin 26 PG (27-34); Mean Corpuscular Volume 82.1 FL (87-102); Mean Platelet Volume 9.7 FL (9.6-12.0); Monocytes # 1.5 10*3/uL (0.11-0.8); Monocytes % 9.1 % (1.7-12.7); Neutrophils # 12.4 10*3/uL (1.4-7.4); Neutrophils % 76.2 % (38.7-73.9); Platelet Count 689 T/CUMM (130-400); Red Blood Count 3.92 MC/CUMM (3.8-5.5); Red Cell Distribution Width 15.2 % (9.3-17.3); White Blood Count 16.2 T/CUMM (4-12)
[2017-12-04] MEDS: PROPRANOLOL 10 MG TABLET PO SCH ×3 (06:19→21:39)
[2017-12-04] MEDS: POLYETHYLENE GLYCOL POWDER 17 GM PACK PEG SCH (09:32)
[2017-12-04] MEDS: FAMOTIDINE 20 MG TABLET PEG SCH ×2 (09:33→21:39)
[2017-12-04] MEDS: SODIUM CHLORIDE 1 GM TABLET PO SCH ×3 (09:33→21:39)
[2017-12-04] MEDS: DOCUSATE SODIUM 100 MG/10 ML UDCUP PEG SCH (09:33)
[2017-12-04] MEDS: POTASSIUM CHLORIDE 20 MEQ TABLET PO SCH (09:33)
[2017-12-04] MEDS: FUROSEMIDE 20 MG TABLET PO SCH (09:33)
[2017-12-04] MEDS: ZINC OXIDE PASTE 113 GM TUBE TOP SCH ×2 (09:34→21:40)
[2017-12-04] MEDS: ENOXAPARIN 40 MG/0.4 ML SYRINGE SUBCUT SCH (21:40)
[2017-12-05] MEDS: ALBUTEROL/IPRATROPIUM 3 ML NEB RESP TX SCH ×4 (00:14→19:07)
[2017-12-05] MEDS: PROPRANOLOL 10 MG TABLET PO SCH ×3 (05:38→21:04)
[2017-12-05] MEDS: POLYETHYLENE GLYCOL POWDER 17 GM PACK PEG SCH (08:32)
[2017-12-05] MEDS: ZINC OXIDE PASTE 113 GM TUBE TOP SCH ×2 (08:33→21:04)
[2017-12-05] MEDS: SODIUM CHLORIDE 1 GM TABLET PO SCH ×3 (08:33→21:03)
[2017-12-05] MEDS: POTASSIUM CHLORIDE 20 MEQ TABLET PO SCH (08:33)
[2017-12-05] MEDS: DOCUSATE SODIUM 100 MG/10 ML UDCUP PEG SCH (08:33)
[2017-12-05] MEDS: FUROSEMIDE 20 MG TABLET PO SCH (08:33)
[2017-12-05] MEDS: FAMOTIDINE 20 MG TABLET PEG SCH ×2 (08:33→21:03)
[2017-12-05] MEDS: ENOXAPARIN 40 MG/0.4 ML SYRINGE SUBCUT SCH (21:04)
[2017-12-06] MEDS: ALBUTEROL/IPRATROPIUM 3 ML NEB RESP TX SCH ×4 (00:25→19:49)
[2017-12-06 04:57] LABS: Calcium 8.9 MG/DL (8.5-10.1); Osmolality,Calculated 276.7 MOS/KG (273-304); Potassium 3.9 MMOL/L (3.5-5.1)
[2017-12-06] MEDS: PROPRANOLOL 10 MG TABLET PO SCH ×3 (06:15→21:06)
[2017-12-06] MEDS: POTASSIUM CHLORIDE 20 MEQ TABLET PO SCH (09:11)
[2017-12-06] MEDS: DOCUSATE SODIUM 100 MG/10 ML UDCUP PEG SCH (09:11)
[2017-12-06] MEDS: FUROSEMIDE 20 MG TABLET PO SCH (09:11)
[2017-12-06] MEDS: SODIUM CHLORIDE 1 GM TABLET PO SCH ×3 (09:11→21:06)
[2017-12-06] MEDS: ZINC OXIDE PASTE 113 GM TUBE TOP SCH ×2 (09:12→21:06)
[2017-12-06] MEDS: FAMOTIDINE 20 MG TABLET PEG SCH ×2 (09:12→21:06)
[2017-12-06] MEDS: POLYETHYLENE GLYCOL POWDER 17 GM PACK PEG SCH (09:12)
[2017-12-06 13:21] LABS: Basophils % 0.2 % (0.0-0.8); Eosinophils % 0.1 % (0.00-10.9); Hematocrit 32.8 VOL% (42.0-52.0); Hemoglobin 10.4 GM/DL (14.0-18.0); Immature Granulocytes % 0.4 %; Immature Granulocytes Absolute 0.08 #; Lymphocytes # 1.3 10*3/uL (1.4-4.0); Lymphocytes % 6.7 % (21.2-54.2); Mean Corpuscular HGB Conc 31.7 GM/DL (32-36); Mean Corpuscular Hemoglobin 26 PG (27-34); Mean Corpuscular Volume 82.2 FL (87-102); Mean Platelet Volume 10.1 FL (9.6-12.0); Monocytes # 1.7 10*3/uL (0.11-0.8); Monocytes % 8.6 % (1.7-12.7); Neutrophils # 16.7 10*3/uL (1.4-7.4); Platelet Count 571 T/CUMM (130-400); Red Blood Count 3.99 MC/CUMM (3.8-5.5); Red Cell Distribution Width 15.7 % (9.3-17.3); White Blood Count 19.9 T/CUMM (4-12)
[2017-12-06] MEDS: ACETAMINOPHEN 325 MG/10.15 ML UDCUP PER TUBE PRN (13:25)
[2017-12-06 13:32] LABS: Amorphous Crystals,Urine Occasional /HPF (Few); Apearance,Urine CLOUDY (Clear); Bilirubin,Urine Negative (Negative); Blood, Urine Negative (Negative); Glucose,Urine (UA) Negative (Negative); Ketones,Urine Negative (Negative); Mucus,Urine Many /LPF (Occasional); Nitrite,Urine Negative (Negative); Protein,Urine Negative; RBC,Urine 12 /HPF (0-4); Urine Color Yellow (Yellow); Urine Specific Gravity 1.016 (1.001-1.035); Urine Urobilinogen < 2.0 EU/DL (0.2-1.0); WBC,Urine 1 /HPF (0-6)
[2017-12-06] MEDS: ENOXAPARIN 40 MG/0.4 ML SYRINGE SUBCUT SCH (21:06)
[2017-12-07] MEDS: ALBUTEROL/IPRATROPIUM 3 ML NEB RESP TX SCH ×4 (01:16→19:11)
[2017-12-07 06:00] LABS: Basophils # 0.1 10*3/uL (0.0-0.2); Basophils % 0.3 % (0.0-0.8); Eosinophils % 0.2 % (0.00-10.9); Hematocrit 31.9 VOL% (42.0-52.0); Hemoglobin 10.2 GM/DL (14.0-18.0); Immature Granulocytes % 0.7 %; Immature Granulocytes Absolute 0.11 #; Lymphocytes % 12.5 % (21.2-54.2); Mean Corpuscular Hemoglobin 26 PG (27-34); Mean Corpuscular Volume 81.2 FL (87-102); Mean Platelet Volume 10.6 FL (9.6-12.0); Neutrophils # 12.1 10*3/uL (1.4-7.4); Neutrophils % 74.3 % (38.7-73.9); Platelet Count 526 T/CUMM (130-400); Red Blood Count 3.93 MC/CUMM (3.8-5.5); Red Cell Distribution Width 15.8 % (9.3-17.3); White Blood Count 16.3 T/CUMM (4-12)
[2017-12-07] MEDS: PROPRANOLOL 10 MG TABLET PO SCH ×3 (06:30→21:48)
[2017-12-07 06:33] LABS: Calcium 8.4 MG/DL (8.5-10.1); Osmolality,Calculated 282.5 MOS/KG (273-304); Potassium 3.7 MMOL/L (3.5-5.1)
[2017-12-07] MEDS: FAMOTIDINE 20 MG TABLET PEG SCH ×2 (08:19→21:48)
[2017-12-07] MEDS: FUROSEMIDE 20 MG TABLET PO SCH (08:19)
[2017-12-07] MEDS: POLYETHYLENE GLYCOL POWDER 17 GM PACK PEG SCH (08:19)
[2017-12-07] MEDS: DOCUSATE SODIUM 100 MG/10 ML UDCUP PEG SCH (08:19)
[2017-12-07] MEDS: POTASSIUM CHLORIDE 20 MEQ TABLET PO SCH (08:19)
[2017-12-07] MEDS: SODIUM CHLORIDE 1 GM TABLET PO SCH ×3 (08:19→21:48)
[2017-12-07] MEDS: ZINC OXIDE PASTE 113 GM TUBE TOP SCH ×2 (08:20→21:47)
[2017-12-07] MEDS: ENOXAPARIN 40 MG/0.4 ML SYRINGE SUBCUT SCH (21:47)
[2017-12-08] MEDS: ALBUTEROL/IPRATROPIUM 3 ML NEB RESP TX SCH ×4 (00:43→18:52)
[2017-12-08] MEDS: PROPRANOLOL 10 MG TABLET PO SCH ×3 (05:48→21:06)
[2017-12-08 05:50] LABS: Basophils # 0.1 10*3/uL (0.0-0.2); Basophils % 0.3 % (0.0-0.8); Eosinophils % 0.1 % (0.00-10.9); Hemoglobin 9.8 GM/DL (14.0-18.0); Immature Granulocytes % 0.4 %; Immature Granulocytes Absolute 0.07 #; Lymphocytes # 2.7 10*3/uL (1.4-4.0); Lymphocytes % 17.1 % (21.2-54.2); Mean Corpuscular HGB Conc 31.6 GM/DL (32-36); Mean Corpuscular Hemoglobin 26 PG (27-34); Mean Corpuscular Volume 80.7 FL (87-102); Mean Platelet Volume 10.8 FL (9.6-12.0); Monocytes # 2.3 10*3/uL (0.11-0.8); Monocytes % 14.3 % (1.7-12.7); Neutrophils # 10.6 10*3/uL (1.4-7.4); Neutrophils % 67.8 % (38.7-73.9); Platelet Count 527 T/CUMM (130-400); Red Blood Count 3.84 MC/CUMM (3.8-5.5); Red Cell Distribution Width 15.9 % (9.3-17.3); White Blood Count 15.7 T/CUMM (4-12)
[2017-12-08] MEDS: DOCUSATE SODIUM 100 MG/10 ML UDCUP PEG SCH (10:00)
[2017-12-08] MEDS: FUROSEMIDE 20 MG TABLET PO SCH (10:00)
[2017-12-08] MEDS: POTASSIUM CHLORIDE 20 MEQ TABLET PO SCH (10:00)
[2017-12-08] MEDS: FAMOTIDINE 20 MG TABLET PEG SCH ×2 (10:00→21:06)
[2017-12-08] MEDS: SODIUM CHLORIDE 1 GM TABLET PO SCH ×3 (10:00→21:06)
[2017-12-08] MEDS: POLYETHYLENE GLYCOL POWDER 17 GM PACK PEG SCH (10:00)
[2017-12-08] MEDS: ZINC OXIDE PASTE 113 GM TUBE TOP SCH ×2 (10:01→21:06)
[2017-12-08] MEDS: ENOXAPARIN 40 MG/0.4 ML SYRINGE SUBCUT SCH (21:06)
[2017-12-09] MEDS: ALBUTEROL/IPRATROPIUM 3 ML NEB RESP TX SCH ×4 (00:16→20:15)
[2017-12-09 05:44] LABS: Basophils % 0.3 % (0.0-0.8); Eosinophils # 0.1 10*3/uL (0.0-0.87); Eosinophils % 0.6 % (0.00-10.9); Hematocrit 29.1 VOL% (42.0-52.0); Hemoglobin 9.4 GM/DL (14.0-18.0); Immature Granulocytes % 0.3 %; Immature Granulocytes Absolute 0.04 #; Lymphocytes # 2.3 10*3/uL (1.4-4.0); Lymphocytes % 19.9 % (21.2-54.2); Mean Corpuscular HGB Conc 32.3 GM/DL (32-36); Mean Corpuscular Hemoglobin 26 PG (27-34); Mean Corpuscular Volume 80.2 FL (87-102); Mean Platelet Volume 10.3 FL (9.6-12.0); Monocytes # 1.5 10*3/uL (0.11-0.8); Monocytes % 12.8 % (1.7-12.7); Neutrophils # 7.7 10*3/uL (1.4-7.4); Neutrophils % 66.1 % (38.7-73.9); Platelet Count 488 T/CUMM (130-400); Red Blood Count 3.63 MC/CUMM (3.8-5.5); Red Cell Distribution Width 15.8 % (9.3-17.3); White Blood Count 11.7 T/CUMM (4-12)
[2017-12-09 05:59] LABS: Calcium 8.5 MG/DL (8.5-10.1); Osmolality,Calculated 283.3 MOS/KG (273-304); Potassium 3.6 MMOL/L (3.5-5.1)
[2017-12-09] MEDS: PROPRANOLOL 10 MG TABLET PO SCH ×3 (07:09→22:09)
[2017-12-09] MEDS: DOCUSATE SODIUM 100 MG/10 ML UDCUP PEG SCH (09:57)
[2017-12-09] MEDS: ZINC OXIDE PASTE 113 GM TUBE TOP SCH ×2 (09:58→20:25)
[2017-12-09] MEDS: POLYETHYLENE GLYCOL POWDER 17 GM PACK PEG SCH (09:58)
[2017-12-09] MEDS: POTASSIUM CHLORIDE 20 MEQ TABLET PO SCH (09:58)
[2017-12-09] MEDS: FAMOTIDINE 20 MG TABLET PEG SCH ×2 (09:58→20:24)
[2017-12-09] MEDS: SODIUM CHLORIDE 1 GM TABLET PO SCH ×3 (09:58→20:24)
[2017-12-09] MEDS: FUROSEMIDE 20 MG TABLET PO SCH (09:58)
[2017-12-09] MEDS: SCOPOLAMINE 1.5 MG PATCH TRANSDERM SCH (11:44)
[2017-12-09] MEDS: ENOXAPARIN 40 MG/0.4 ML SYRINGE SUBCUT SCH (20:24)
[2017-12-10] MEDS: ALBUTEROL/IPRATROPIUM 3 ML NEB RESP TX SCH ×4 (00:45→19:16)
[2017-12-10] MEDS: PROPRANOLOL 10 MG TABLET PO SCH ×3 (07:30→22:39)
[2017-12-10] MEDS: SODIUM CHLORIDE 1 GM TABLET PO SCH ×3 (11:56→22:38)
[2017-12-10] MEDS: DOCUSATE SODIUM 100 MG/10 ML UDCUP PEG SCH (11:56)
[2017-12-10] MEDS: ZINC OXIDE PASTE 113 GM TUBE TOP SCH ×2 (11:57→20:29)
[2017-12-10] MEDS: FUROSEMIDE 20 MG TABLET PO SCH (11:57)
[2017-12-10] MEDS: POLYETHYLENE GLYCOL POWDER 17 GM PACK PEG SCH (11:57)
[2017-12-10] MEDS: POTASSIUM CHLORIDE 20 MEQ TABLET PO SCH (11:57)
[2017-12-10] MEDS: FAMOTIDINE 20 MG TABLET PEG SCH ×2 (11:57→22:39)
[2017-12-10] MEDS: ENOXAPARIN 40 MG/0.4 ML SYRINGE SUBCUT SCH (22:39)
[2017-12-11] MEDS: ALBUTEROL/IPRATROPIUM 3 ML NEB RESP TX SCH ×4 (00:41→19:55)
[2017-12-11] MEDS: PROPRANOLOL 10 MG TABLET PO SCH ×3 (06:15→21:49)
[2017-12-11] MEDS: SODIUM CHLORIDE 1 GM TABLET PO SCH ×3 (09:30→21:49)
[2017-12-11] MEDS: FUROSEMIDE 20 MG TABLET PO SCH (09:30)
[2017-12-11] MEDS: POLYETHYLENE GLYCOL POWDER 17 GM PACK PEG SCH (09:30)
[2017-12-11] MEDS: POTASSIUM CHLORIDE 20 MEQ TABLET PO SCH (09:30)
[2017-12-11] MEDS: ZINC OXIDE PASTE 113 GM TUBE TOP SCH ×2 (09:30→21:50)
[2017-12-11] MEDS: DOCUSATE SODIUM 100 MG/10 ML UDCUP PEG SCH (09:30)
[2017-12-11] MEDS: FAMOTIDINE 20 MG TABLET PEG SCH ×2 (09:30→21:49)
[2017-12-11] MEDS: ENOXAPARIN 40 MG/0.4 ML SYRINGE SUBCUT SCH (21:49)
[2017-12-12] MEDS: ALBUTEROL/IPRATROPIUM 3 ML NEB RESP TX SCH ×4 (02:22→19:45)
[2017-12-12] MEDS: PROPRANOLOL 10 MG TABLET PO SCH ×3 (05:50→21:07)
[2017-12-12] MEDS: DOCUSATE SODIUM 100 MG/10 ML UDCUP PEG SCH (09:21)
[2017-12-12] MEDS: ZINC OXIDE PASTE 113 GM TUBE TOP SCH ×2 (09:21→21:07)
[2017-12-12] MEDS: POLYETHYLENE GLYCOL POWDER 17 GM PACK PEG SCH (09:22)
[2017-12-12] MEDS: POTASSIUM CHLORIDE 20 MEQ TABLET PO SCH (09:22)
[2017-12-12] MEDS: FUROSEMIDE 20 MG TABLET PO SCH (09:22)
[2017-12-12] MEDS: FAMOTIDINE 20 MG TABLET PEG SCH ×2 (09:22→21:06)
[2017-12-12] MEDS: SODIUM CHLORIDE 1 GM TABLET PO SCH ×3 (09:22→21:06)
[2017-12-12] MEDS: SCOPOLAMINE 1.5 MG PATCH TRANSDERM SCH (09:22)
[2017-12-12] MEDS: ENOXAPARIN 40 MG/0.4 ML SYRINGE SUBCUT SCH (21:07)
[2017-12-13] MEDS: ALBUTEROL/IPRATROPIUM 3 ML NEB RESP TX SCH ×4 (00:16→19:53)
[2017-12-13] MEDS: PROPRANOLOL 10 MG TABLET PO SCH ×3 (06:20→22:22)
[2017-12-13 06:49] LABS: Basophils % 0.4 % (0.0-0.8); Eosinophils # 0.2 10*3/uL (0.0-0.87); Eosinophils % 2.5 % (0.00-10.9); Hematocrit 33.6 VOL% (42.0-52.0); Hemoglobin 10.2 GM/DL (14.0-18.0); Immature Granulocytes % 0.5 %; Immature Granulocytes Absolute 0.04 #; Lymphocytes # 1.8 10*3/uL (1.4-4.0); Mean Corpuscular HGB Conc 30.4 GM/DL (32-36); Mean Corpuscular Hemoglobin 26 PG (27-34); Mean Corpuscular Volume 84.4 FL (87-102); Mean Platelet Volume 11.8 FL (9.6-12.0); Monocytes # 0.8 10*3/uL (0.11-0.8); Monocytes % 10.1 % (1.7-12.7); Neutrophils # 5.3 10*3/uL (1.4-7.4); Neutrophils % 64.5 % (38.7-73.9); Platelet Count 355 T/CUMM (130-400); Red Blood Count 3.98 MC/CUMM (3.8-5.5); Red Cell Distribution Width 15.7 % (9.3-17.3); White Blood Count 8.2 T/CUMM (4-12)
[2017-12-13 06:59] LABS: Calcium 9.2 MG/DL (8.5-10.1); Osmolality,Calculated 275.5 MOS/KG (273-304); Potassium 4.1 MMOL/L (3.5-5.1)
[2017-12-13] MEDS: POTASSIUM CHLORIDE 20 MEQ TABLET PO SCH (11:51)
[2017-12-13] MEDS: ZINC OXIDE PASTE 113 GM TUBE TOP SCH ×2 (11:51→22:23)
[2017-12-13] MEDS: FUROSEMIDE 20 MG TABLET PO SCH (11:51)
[2017-12-13] MEDS: DOCUSATE SODIUM 100 MG/10 ML UDCUP PEG SCH (11:51)
[2017-12-13] MEDS: POLYETHYLENE GLYCOL POWDER 17 GM PACK PEG SCH (11:51)
[2017-12-13] MEDS: SODIUM CHLORIDE 1 GM TABLET PO SCH ×3 (11:52→22:22)
[2017-12-13] MEDS: FAMOTIDINE 20 MG TABLET PEG SCH ×2 (11:52→22:22)
[2017-12-13] MEDS: ENOXAPARIN 40 MG/0.4 ML SYRINGE SUBCUT SCH (22:23)
[2017-12-14] MEDS: ALBUTEROL/IPRATROPIUM 3 ML NEB RESP TX SCH ×4 (00:03→19:40)
[2017-12-14] MEDS: PROPRANOLOL 10 MG TABLET PO SCH ×3 (05:53→22:32)
[2017-12-14 06:37] LABS: Basophils % 0.4 % (0.0-0.8); Eosinophils # 0.2 10*3/uL (0.0-0.87); Eosinophils % 2.1 % (0.00-10.9); Hematocrit 34.6 VOL% (42.0-52.0); Hemoglobin 10.8 GM/DL (14.0-18.0); Immature Granulocytes % 0.4 %; Immature Granulocytes Absolute 0.05 #; Lymphocytes # 2.7 10*3/uL (1.4-4.0); Lymphocytes % 23.8 % (21.2-54.2); Mean Corpuscular HGB Conc 31.2 GM/DL (32-36); Mean Corpuscular Hemoglobin 25 PG (27-34); Mean Corpuscular Volume 81.2 FL (87-102); Mean Platelet Volume 9.7 FL (9.6-12.0); Monocytes # 1.1 10*3/uL (0.11-0.8); Monocytes % 9.4 % (1.7-12.7); Neutrophils # 7.2 10*3/uL (1.4-7.4); Neutrophils % 63.9 % (38.7-73.9); Platelet Count 529 T/CUMM (130-400); Red Blood Count 4.26 MC/CUMM (3.8-5.5); Red Cell Distribution Width 15.7 % (9.3-17.3); White Blood Count 11.3 T/CUMM (4-12)
[2017-12-14 07:09] LABS: Calcium 9.1 MG/DL (8.5-10.1); Osmolality,Calculated 278.4 MOS/KG (273-304); Potassium 3.5 MMOL/L (3.5-5.1)
[2017-12-14] MEDS: SODIUM CHLORIDE 1 GM TABLET PO SCH ×3 (09:44→21:02)
[2017-12-14] MEDS: FAMOTIDINE 20 MG TABLET PEG SCH ×2 (09:44→21:01)
[2017-12-14] MEDS: POLYETHYLENE GLYCOL POWDER 17 GM PACK PEG SCH (09:44)
[2017-12-14] MEDS: ZINC OXIDE PASTE 113 GM TUBE TOP SCH ×2 (09:44→21:20)
[2017-12-14] MEDS: POTASSIUM CHLORIDE 20 MEQ TABLET PO SCH (09:44)
[2017-12-14] MEDS: FUROSEMIDE 20 MG TABLET PO SCH (09:44)
[2017-12-14] MEDS: DOCUSATE SODIUM 100 MG/10 ML UDCUP PEG SCH (09:44)
[2017-12-14] MEDS: ENOXAPARIN 40 MG/0.4 ML SYRINGE SUBCUT SCH (21:02)
[2017-12-15] MEDS: ALBUTEROL/IPRATROPIUM 3 ML NEB RESP TX SCH ×2 (01:25→06:58)
[2017-12-15] MEDS: PROPRANOLOL 10 MG TABLET PO SCH ×2 (05:23→15:04)
[2017-12-15] MEDS: SODIUM CHLORIDE 1 GM TABLET PO SCH ×2 (11:12→15:05)
[2017-12-15] MEDS: POTASSIUM CHLORIDE 20 MEQ TABLET PO SCH (11:12)
[2017-12-15] MEDS: SCOPOLAMINE 1.5 MG PATCH TRANSDERM SCH (11:12)
[2017-12-15] MEDS: POLYETHYLENE GLYCOL POWDER 17 GM PACK PEG SCH (11:12)
[2017-12-15] MEDS: DOCUSATE SODIUM 100 MG/10 ML UDCUP PEG SCH (11:12)
[2017-12-15] MEDS: FUROSEMIDE 20 MG TABLET PO SCH (11:12)
[2017-12-15] MEDS: FAMOTIDINE 20 MG TABLET PEG SCH (11:12)
[2017-12-15] MEDS: ZINC OXIDE PASTE 113 GM TUBE TOP SCH (11:13)
[2017-12-15 11:39] VITALS: BP 127/80
== END 2017-12-15 14:40 | DRG 80 ==
LOC: SUATTDRO 13:34 → N.3E 13:34
PROVIDERS: ATTEND Internal Medicine